=== PATIENT | female | born 1950 | race Caucasian/White ===

== ENCOUNTER → 2021-11-28 | Day surgery (SDC) | payer OTHER ==
[~2021-11-28] VITALS: Ht 167.6 cm; Wt 56.7 kg
[~2021-11-28] MED LIST: ASPIRIN EC81 MG PO; ATORVASTATIN CA20 MG PO; CALCIUM600 MG PO; CELECOXIB100 MG PO; SERTRALINE HCL100 MG PO; SERTRALINE PO
[2021-11-28 07:51] LABS: HCT 37.1 % (37.0-47.0); HGB 12.7 g/dl (12.5-16.0); MCH 32.2 pg (25.0-31.0); MCHC 34.2 g/dL (32.0-36.0); MCV 94.2 fL (78.0-100.0); MPV 10.5 fL (6.0-9.5); RBC 3.94 M/uL (4.20-5.40); RDW 12.7 % (11.5-14.0); WBC 7.6 K/uL (4.0-10.5)
[2021-11-28 08:09] LABS: ALBUMIN 3.4 g/dL (3.4-5.0); BILIRUBIN - TOTAL 0.4 mg/dL (0.2-1.0); BUN/CREAT RATIO (CALC) 14.8 RATIO; CREATININE 0.61 mg/dL (0.51-0.95); GLOBULIN (CALCULATION) 4.1 g/dL; POTASSIUM 3.7 mmol/L (3.5-5.1); TOTAL PROTEIN 7.5 g/dL (6.4-8.2)
== END | disposition home or self-care (01) ==
LOC: FAS 07:11
PROVIDERS: Surgery
DX: Z12.11 Encounter for screening for malignant neoplasm of colon (principal); K62.1 Rectal polyp; Z86.010 Personal history of colon polyps; J44.9 Chronic obstructive pulmonary disease, unspecified; F17.210 Nicotine dependence, cigarettes, uncomplicated; F32.A Depression, unspecified; F41.9 Anxiety disorder, unspecified; Z79.899 Other long term (current) drug therapy
CPT/HCPCS: 36415; 80053; J1610; J2704; J7120